=== PATIENT | female | born 1985 | race Caucasian/White ===

== ENCOUNTER 2016-07-12 06:56 | Emergency (ER) | payer BC ==
[2016-07-12 07:15] VITALS: BP 123/99
--- NOTE | 2016-07-12 07:20 | EDM.PDOC ---
ED HPI Behavioral Health - General Chief Complaint: Behavioral/Psych Stated Complaint: PANIC ATTACK Time Seen by Provider: 07/12/16 07:15 - History of Present Illness INITIAL COMMENTS - FREE TEXT/NARRATIVE: 30-year-old female presents emergency room with nausea vomiting and an anxiety attack. Patient awoke around 5:00 this morning had a couple vomiting episodes and was starting to feel anxious. She has a history of anxiety but cannot keep her Zanax down this morning that she uses on an as-needed basis. Patient denies any fevers or chills or abdominal pain. Patient states it looks nice weather she was drinking some yesterday but she doesn't necessarily feel like this is a hangover. She's not having the burning or frequency with urination. She has irregular periods this is not changing. And she is on control. - Related Data Allergies Allergy/AdvReac Type Severity Reaction Status Date / Time sulfanilamide Allergy Nausea and Verified 07/12/16 07:13 Vomiting Home Medications: Home Meds ALPRAZolam [Xanax] 0.25 mg PO DAILY PRN 04/29/15 [History] FLUoxetine [PROzac] 40 mg PO DAILY 04/29/15 [History] Ondansetron [Zofran ODT] 4 mg PO Q6H PRN #6 tab.dis 07/12/16 [Rx] Past Medical History - Past Health History Medical/Surgical History: Denies Medical/Surgical History Social & Family History - Tobacco Use Smoking Status *Q: Current Every Day Smoker Years of Tobacco use: 15 Packs/Tins Daily: 0.2 - Recreational Drug Use Recreational Drug Use: No ED ROS GENERAL - Review of Systems Review Of Systems: See Below Constitutional: Denies: fever, chills HEENT: Reports: No symptoms Respiratory: Reports: No Symptoms Cardiovascular: Reports: No symptoms GI/Abdominal: Reports: Nausea, Vomiting. Denies: Abdominal pain, Constipation : Reports: no symptoms Psychiatric: Reports: Anxiety. Denies: Depression, Hallucinations, Homicidal ideation, Mood lability, Suicidal ideation ED EXAM, BEHAVIORAL HEALTH - Physical Exam Exam: See Below Exam Limited By: No limitations General Appearance: alert, no apparent distress Head: atraumatic, normocephalic Neck: normal inspection, supple Respiratory/Chest: no respiratory distress, lungs clear, normal breath sounds Cardiovascular: regular rate, rhythm, no edema, no murmur GI/Abdominal: normal bowel sounds, soft, non tender Back Exam: normal inspection. No: CVA tenderness (L), CVA tenderness (R) COURSE, BEHAVIORAL HEALTH COMP - Course Vital Signs: Last Vital Signs Temp 36.4 C 07/12/16 07:05 Pulse 98 07/12/16 07:05 Resp 22 H 07/12/16 07:05 BP 123/99 H 07/12/16 07:05 Pulse Ox 98 07/12/16 07:05 Orders, Labs, Meds: Medications Discontinued Medications Generic Name Dose Route Start Last Admin Trade Name Freq PRN Reason Stop Dose Admin Lorazepam 1 mg 07/12/16 21:00 Ativan PO BEDTIME RHINA Lorazepam 1 mg 07/12/16 07:29 07/12/16 07:32 Ativan PO 07/12/16 07:30 1 mg ONETIME STA Administration Ondansetron HCl 8 mg 07/12/16 07:21 07/12/16 07:28 Zofran Odt PO 07/12/16 07:22 8 mg ONETIME ONE Administration Discharge vs Psych Eval/Treatment:: 07/12/16 08:09 Patient is doing much better after receiving some Zofran and oral Ativan she's taking fluids without difficulty Feels hungry at this point patient will be discharged home with a prescription for Zofran the Departure - Departure Time of Disposition: 08:10 Disposition: Home, Self-Care 01 Clinical Impression: Nausea & vomiting, Panic disorder Prescriptions: Ondansetron [Zofran ODT] 4 mg PO Q6H PRN #6 tab.dis PRN Reason: Nausea/Vomiting Forms: ED Department Discharge Additional Instructions: Return to the emergency room with any questions or problems. You have been given a medication for your anxiety, this was Ativan. This can cause some sedation do not drive or returning to work for the next 12 hours. He then started on Zofran for the nausea and vomiting he can use one every 4-6 hours as needed. Clear liquid diet for the next 24 hours then slowly advance as tolerated. Followup in the clinic in the next couple of days if needed.
[2016-07-12] MEDS ORDERED: Ondansetron 4 MG Tab.DIS PO ONE (07:21)
[2016-07-12] MEDS ORDERED: LORazepam 1 MG Tab PO STA (07:29)
[2016-07-12] MEDS ORDERED: LORazepam 1 MG Tab PO SCH (21:00)
== END 2016-07-12 08:15 | disposition home or self-care (01) ==
LOC: JD.ED 06:56
DX: R11.2 Nausea with vomiting, unspecified (principal); F41.0 Panic disorder [episodic paroxysmal anxiety]; F17.210 Nicotine dependence, cigarettes, uncomplicated; Z88.2 Allergy status to sulfonamides; Z79.899 Other long term (current) drug therapy
CPT/HCPCS: 99283; A9270

== ENCOUNTER 2020-05-26 17:02 | Emergency (ER) | payer BC, OTHER, SELFPAY ==
[2020-05-26 17:11] VITALS: PULSE 95
[2020-05-26] MEDS ORDERED: Diphtheria,Pertussis(Acell),Tetanus Vaccine 0.5 ML Syringe IM ONE (17:21)
[2020-05-26] MEDS ORDERED: Lidocaine 1% 10 ML MDV INJECT ONE (17:21)
--- NOTE | 2020-05-26 17:54 | EDM.PDOC ---
ED HPI GENERAL MEDICAL PROBLEM - General Chief Complaint: Laceration Stated Complaint: LT HAND FINGER LAC Time Seen by Provider: 05/26/20 17:04 Source of Information: Reports: Patient, RN Notes Reviewed History Limitations: Reports: No Limitations - History of Present Illness INITIAL COMMENTS - FREE TEXT/NARRATIVE: Patient is a 34-year-old female presenting to the emergency department with complaints of a laceration to the distal aspect of her left thumb. She states she was cooking dinner and cut herself with a kitchen knife. She is unsure when her last tetanus vaccination was. - Related Data Allergies Allergy/AdvReac Type Severity Reaction Status Date / Time sulfanilamide Allergy Nausea and Verified 05/26/20 17:10 Vomiting Home Meds: Home Meds ALPRAZolam [Xanax] 0.25 mg PO DAILY PRN 04/29/15 [History] FLUoxetine [PROzac] 40 mg PO DAILY 04/29/15 [History] Phentermine/Topiramate [Qsymia 11.25 mg-69 mg Capsule] 1 tab PO DAILY 05/26/20 [History] Past Medical History - Past Health History Medical/Surgical History: Denies Medical/Surgical History Psychiatric History: Reports: Panic Attack Social & Family History - Tobacco Use Tobacco Use Status *Q: Current Every Day Tobacco User Years of Tobacco use: 20 Packs/Tins Daily: 0.5 - Caffeine Use Caffeine Use: Reports: None - Recreational Drug Use Recreational Drug Use: No ED ROS GENERAL - Review of Systems Review Of Systems: Comprehensive ROS is negative, except as noted in HPI. ED EXAM, SKIN/RASH Exam: See Below Exam Limited By: No Limitations General Appearance: Alert, WD/WN, No Apparent Distress Respiratory/Chest: No Respiratory Distress, Lungs Clear, Normal Breath Sounds, No Accessory Muscle Use, Chest Non-Tender Cardiovascular: Normal Peripheral Pulses, Regular Rate, Rhythm, No Edema, No Gallop, No JVD, No Murmur, No Rub Skin: Other (1.5 cm laceration to the medial aspect of the left thumb distal to the DIP joint. Full range of motion and strength to flexion and extension. Moderate amount of bleeding.) ED SKIN PROCEDURES - Laceration/Wound Repair Left Distal Digit - 1st (Thumb) Appearance: Subcutaneous Distal NVT: Neuro & Vascular Intact, No Tendon Injury Anesthetic Type: Local Local Anesthesia - Lidocaine (Xylocaine): 1% Plain Local Anesthetic Volume: 2cc Skin Prep: Chlorhexidine (Hibiciens), Providone-Iodine (Betadine), Saline Exploration/Debridement/Repair: Wound Explored, No Foreign Material Found Closed with: Sutures Lac/Wound length In cm: 1.5 Suture Size: 4-0 # of Sutures: 5 Suture Type: Nylon Sterile Dressing Applied: Provider Tetanus Status Addressed: Yes Complications: No Course - Vital Signs Last Recorded V/S: Last Vital Signs Temp 97.8 F 05/26/20 17:08 Pulse 95 05/26/20 17:08 Resp 16 05/26/20 17:08 BP Pulse Ox 99 05/26/20 17:08 - Orders/Labs/Meds Meds: Medications Discontinued Medications Generic Name Dose Route Start Last Admin Trade Name Chanelle PRN Reason Stop Dose Admin Diphtheria/Tetanus/Acell Pertussis 0.5 ml 05/26/20 17:21 05/26/20 17:53 Boostrix IM 05/26/20 17:22 0.5 ml .ONCE ONE Administration Lidocaine HCl 10 ml 05/26/20 17:21 05/26/20 17:53 Xylocaine 1% INJECT 05/26/20 17:22 10 ml ONETIME ONE Administration Departure - Departure Time of Disposition: 18:05 Disposition: Home, Self-Care 01 Condition: Good Clinical Impression: Laceration - Discharge Information Instructions: Laceration Care, Adult Referrals: Maricarmen Vicente PA-C [Primary Care Provider] - Forms: ED Department Discharge Additional Instructions: You were seen in the emergency department today for a laceration to your thumb. The wound was cleansed and closed with 5 sutures. These should stay intact for 7-10 days. After that time they may be removed in the clinic by a nurse. Keep the wound clean and dry. Wash with normal soap and water twice daily. Do not submerge the wound in water. Watch for signs of infection including increased redness, swelling, or purulent drainage. If these should occur, you should be seen either in the clinic or in the emergency department as antibiotic treatment may be needed. Return to the ER as needed. Sepsis Event Note (ED) - Evaluation Sepsis Screening Result: No Definite Risk
== END 2020-05-26 18:30 | disposition home or self-care (01) ==
LOC: JD.ED 17:02
DX: S61.012A Laceration without foreign body of left thumb without damage to nail, initial encounter (principal); Z88.2 Allergy status to sulfonamides; Z79.899 Other long term (current) drug therapy; Z72.0 Tobacco use; Z23 Encounter for immunization; W26.0XXA Contact with knife, initial encounter
CPT/HCPCS: 12001; 90471; 90715; 99282; 99282-25

== ENCOUNTER 2024-06-12 07:00 | Day surgery (SDC) | payer BC, OTHER ==
[~2024-06-12 07:00] MED LIST: Dexamethasone 4 MG/ML 5 ML MDV ONE; Ketorolac 30 MG/ML SDV ONE; Lidocaine 1% 4 ML ONE; Midazolam 1 MG/ML 2 ML SDV ONE; Ondansetron 4 MG/2 ML SDV ONE; Propofol 200 MG/20 ML SDV ONE; Rocuronium 50 MG/5 ML Vial ONE; ceFAZolin 2 GM Vial ONE; dexmedeTOMIDine HCl 200 MCG/2 ML SDV ONE; fentaNYL 250 MCG/5 ML SDV ONE
[2024-06-12] MEDS: Lactated Ringers 1,000 ML IV SCH (07:15)
[2024-06-12] MEDS ORDERED: fentaNYL 100 MCG/2 ML SDV IVPUSH PRN (07:37)
[2024-06-12] MEDS ORDERED: HYDROmorphone 0.5 MG/0.5 ML Syringe IVPUSH PRN (07:37)
[2024-06-12] MEDS ORDERED: Ondansetron 4 MG/2 ML SDV IVPUSH PRN (07:37)
[2024-06-12] MEDS ORDERED: HYDROmorphone 0.5 MG/0.5 ML Syringe ONE (07:59)
[2024-06-12] MEDS ORDERED: Lactated Ringers 1,000 ML ONE (08:07)
[2024-06-12] MEDS: Bupivacaine 0.5% 30 ML SDV ONE (08:42)
[2024-06-12] MEDS: Bupivacaine 0.25% 10 ML SDV ONE (08:45)
[2024-06-12] MEDS: EPINEPHrine 1 MG/ML SDV ONE (08:47)
[2024-06-12] MEDS ORDERED: Sugammadex Sodium 200 MG/2 ML VIAL IV ONE (08:59)
[2024-06-12] MEDS ORDERED: Acetaminophen 325 MG Tab PO PRN (10:20)
[2024-06-12] MEDS: oxyCODONE 5 MG Tab PO PRN (13:00)
[2024-06-12 13:49] VITALS: BP 101/50; PULSE 76
== END 2024-06-12 13:35 | disposition home or self-care (01) ==
LOC: JD.SDS 07:00
PROVIDERS: ATTEND Obstetrics & Gynecology
DX: N92.0 Excessive and frequent menstruation with regular cycle (principal); N94.6 Dysmenorrhea, unspecified; F41.9 Anxiety disorder, unspecified; K21.9 Gastro-esophageal reflux disease without esophagitis; F32.A Depression, unspecified; E78.5 Hyperlipidemia, unspecified; F17.290 Nicotine dependence, other tobacco product, uncomplicated; Z79.899 Other long term (current) drug therapy; Z88.2 Allergy status to sulfonamides
CPT/HCPCS: 36415; 58550; 86850; 86900; 86901; A9270; J0171; J0665; J0690; J1100; J1596; J1885; J2003; J2250; J2405; J2704; J3010; J7120; 00944; J3490